=== PATIENT | male | born 1940 | race Asian ===

== ENCOUNTER 2021-11-06 11:39 | Inpatient (IN) | payer BC, MEDICARE ==
[~2021-11-06] VITALS: Ht 162.6 cm; Wt 62.1 kg
--- NOTE | 2021-11-06 11:40 | NUR ---
NADIR 78 FROM HOME FOR SYNCOPAL EPISODE. NO FALL. PT IS A&OX4, ATTACHED TO MONITOR, VITALS ARE WITHIN NORMAL LIMITS. NO RESP DISTRESS NOTED. BLOOD SUGAR 105. IV GROUP COUNSELOR L FA 18G. WARM BLANKET PROVIDED FOR COMFORT. AWAITING MD COOPER.
--- NOTE | 2021-11-06 11:51 | NUR ---
LAB AT BEDSIDE
[2021-11-06 12:00] LABS: BASOPHILS # (AUTO) 0.1 K/uL (0.0-0.2); BASOPHILS % (AUTO) 1.5 % (0.0-2.0); HEMATOCRIT 32 % (39-51); HEMOGLOBIN 10.6 g/dL (13.5-17.5); LYMPHOCYTES # (AUTO) 1.5 K/uL (0.8-4.8); LYMPHOCYTES % (AUTO) 26.1 % (20.0-44.0); MEAN CORPUSCULAR HGB CONC 33 g/dl (31.0-36.0); MEAN CORPUSCULAR VOLUME 94 fL (80-96); MONOCYTES # (AUTO) 0.5 K/uL (0.1-1.30); MONOCYTES % (AUTO) 8.9 % (2.0-12.0); NEUTROPHILS # (AUTO) 3.4 K/uL (1.8-8.9); NEUTROPHILS % (AUTO) 57.5 % (43.0-81.0); PLATELET COUNT (AUTO) 298 K/uL (150-450); RED BLOOD CELL COUNT(AUTO) 3.42 MIL/uL (4.5-6.0); WHITE BLOOD COUNT (AUTO) 5.9 K/uL (4.3-11.0)
[2021-11-06] MEDS ORDERED: IV NS 0.9% 1,000 ML BAG IV ONE (12:00)
[2021-11-06 12:14] LABS: ALANINE AMINOTRANSFERASE 22 U/L (12-78); ALBUMIN 3.8 g/dL (3.4-5.0); ALKALINE PHOSPHATASE 51 U/L (46-116); ASPARTATE AMINOTRANSFERASE 22 U/L (15-37); BILIRUBIN,DIRECT 0.1 mg/dL (0.0-0.2); BILIRUBIN,TOTAL 0.5 mg/dL (0.2-1.0); CALCIUM, SERUM 8.9 mg/dL (8.5-10.1); CARBON DIOXIDE 28 mmol/L (21-32); CHLORIDE 107 mmol/L (98-107); CREATININE 1.9 mg/dL (0.6-1.3); GLUCOSE 120 mg/dL (74-106); POTASSIUM 4.8 mmol/L (3.5-5.1); SODIUM SERUM 140 mmol/L (136-145); TOTAL PROTEIN, SERUM 7.2 g/dL (6.4-8.2); UREA NITROGEN, BLOOD 25 mg/dL (7-18)
[2021-11-06] MEDS ORDERED: CHOL100043 PO (12:20)
[2021-11-06] MEDS ORDERED: FISH1CAP16 PO (12:20)
[2021-11-06] MEDS ORDERED: ISOS30TA9 PO (12:20)
[2021-11-06] MEDS ORDERED: FENO54TA PO (12:20)
[2021-11-06] MEDS ORDERED: CARV3.12 PO (12:20)
[2021-11-06] MEDS ORDERED: LOSA25TA27 PO (12:20)
[2021-11-06] MEDS ORDERED: FAMO20TA8 PO (12:20)
[2021-11-06] MEDS ORDERED: ASPI-1169 PO (12:20)
[2021-11-06] MEDS ORDERED: SIMV40TA2 PO (12:20)
[2021-11-06] MEDS ORDERED: OLME40TA12 PO (12:20)
[2021-11-06] MEDS ORDERED: ONDANSETRON HCL/PF 4 MG/2 ML VIAL IVP PRN (15:00)
[2021-11-06] MEDS ORDERED: HYDROCODONE/APAP 5/325MG TABLET PO PRN (15:00)
[2021-11-06] MEDS ORDERED: ACETAMINOPHEN 325 MG TABLET PO PRN (15:00)
[2021-11-06] MEDS ORDERED: MAG HYDROX/AL HYDROX/SIMETH 30 ML UDC PO PRN (15:00)
--- NOTE | 2021-11-06 15:29 | NUR ---
bed given 327-1
--- NOTE | 2021-11-06 15:40 | NUR ---
REPORT GIVEN FOR CHIKIS
--- NOTE | 2021-11-06 15:59 | NUR ---
PT TRASNPORT TO 3W TELE UNIT WITH ACLS PROTOCOL IN PLACE. PT IS STABLE AND ABLE TO AMBULATE TO HIS BED.
[2021-11-06 16:10] VITALS: BP 140/63
[2021-11-06] MEDS ORDERED: Z GUARD REMEDY 4 OZ OINT TP PRN (17:00)
[2021-11-06] MEDS: IV NS 0.9% 1,000 ML IV PRN (17:43)
--- NOTE | 2021-11-06 17:48 | NUR ---
FLIGHT FOLLOWERGLOVE MACHINE OPERATOR NOTES PT ADMITTED TO UNIT VIA GURNEY AT 1600 WITH DX OF SYNCOPE. PT IS ALERT AND ORIENTED X4. ABLE TO MAKE NEEDS KNOWN, DENIES PAIN OR ANY DISCOMFORTS AT THIS TIME. PT ORIENTED TO STAFF AND ROOM. ON ROOM AIR, TOLERATING WELL, BREATHING EVEN AND UNLABORED, NO SOB NOTED. V/S TAKEN STABLE AND RECORDED. PHOTOS OF SKIN ISSUES TAKEN AND FILED ON HIS CHART. LUNGS CLEAR ON AUSCULTATION, ABDOMEN SOFT, NON-TENDER AND NON-DISTENDED WITH + BOWEL SOUNDS ON FOUR QUADRANTS. PT WITH IV ACCESS ON LFA G#18 INTACT AND STARTED ON IVF OF NS @ 75 ML/HR INFUSING WELL, NO S/S OF INFILTRATION AT SITE NOTED. PT PLACED ON EXTERNAL PRECISION DANCER WITH CURRENT READING OF SB, HR 56, NO C/O CARDIAC DISTRESS VOICED AT THIS TIME. SAFETY MEASURES IMPLEMENTED: CALL LIGHT AND TRAY TABLE WITHIN EASY REACH OF PT, SIDE RAILS UP X2, BED IN LOWEST LOCKED POSITION. WILL CONTINUE TO MONITOR PT ACCORDINGLY.
[2021-11-06] MEDS: CARVEDILOL 3.125 MG TABLET PO SCH (17:49)
--- NOTE | 2021-11-06 18:55 | NUR ---
MATHEMATICS PROFESSORHOST HOSTESS NOTES PT IN BED AWAKE AND WATCHING TV AT THIS TIME. A/O X4. ABLE TO MAKE NEEDS KNOWN. ON ROOM AIR, BREATHING EVEN AND UNLABORED, NO SOB NOTED. TELE-MONITOR SHOWS SB, HR 58 AT THIS TIME, NO C/O CARDIAC DISTRESS VOICED. IV ACCESS ON LFA G#18 INTACT WITH IVF OF NS @ 75 ML/HR INFUSING WELL, NO S/S OF INFILTRATION AT SITE NOTED. ALL NEEDS AND CARE ATTENDED WELL. SAFETY MEASURES MAINTAINED: CALL LIGHT AND TRAY TABLE WITHIN EASY REACH OF PT, SIDE RAILS UP X2, BED IN LOWEST LOCKED POSITION. WILL ENDORSE CHIKIS TO TIRE RETREADER NURSE.
--- NOTE | 2021-11-06 19:51 | NUR ---
LICENSED NUCLEAR OPERATOR OPENING NOTE PT IN BED AWAKE AND WATCHING TV AT THIS TIME. A/O X4. ABLE TO MAKE NEEDS KNOWN. ON ROOM AIR, BREATHING EVEN AND UNLABORED, NO SOB NOTED. TELE-MONITOR SHOWS SB, HR 58 AT THIS TIME, NO C/O CARDIAC DISTRESS VOICED. IV ACCESS ON LFA G#18 INTACT WITH IVF OF NS @ 75 ML/HR INFUSING WELL, NO S/S OF INFILTRATION AT SITE NOTED. ALL NEEDS AND CARE ATTENDED WELL. SAFETY MEASURES MAINTAINED: CALL LIGHT AND TRAY TABLE WITHIN EASY REACH OF PT, SIDE RAILS UP X2, BED IN LOWEST LOCKED POSITION. WILL CONTINUE TO MONITOR.
[2021-11-06 20:00] VITALS: BP_SYST 130; BP_SYST 136; BP_SYST 141; BP_DIAS 59; BP_DIAS 60
[2021-11-06] MEDS ORDERED: MAGNESIUM HYDROXIDE 30 ML UDC PO PRN (22:00)
[2021-11-07] VITALS: BP 128/65
[2021-11-07 07:09] LABS: BASOPHILS # (AUTO) 0.1 K/uL (0.0-0.2); HEMATOCRIT 30 % (39-51); HEMOGLOBIN 10.3 g/dL (13.5-17.5); LYMPHOCYTES # (AUTO) 1.8 K/uL (0.8-4.8); LYMPHOCYTES % (AUTO) 23.6 % (20.0-44.0); MEAN CORPUSCULAR HGB CONC 34 g/dl (31.0-36.0); MEAN CORPUSCULAR VOLUME 93 fL (80-96); MONOCYTES # (AUTO) 0.6 K/uL (0.1-1.30); MONOCYTES % (AUTO) 8.6 % (2.0-12.0); NEUTROPHILS # (AUTO) 4.7 K/uL (1.8-8.9); NEUTROPHILS % (AUTO) 62.8 % (43.0-81.0); PLATELET COUNT (AUTO) 297 K/uL (150-450); RED BLOOD CELL COUNT(AUTO) 3.26 MIL/uL (4.5-6.0); WHITE BLOOD COUNT (AUTO) 7.4 K/uL (4.3-11.0)
[2021-11-07 07:17] LABS: CALCIUM, SERUM 8.6 mg/dL (8.5-10.1); CARBON DIOXIDE 26 mmol/L (21-32); CHLORIDE 110 mmol/L (98-107); CREATININE 1.4 mg/dL (0.6-1.3); GLUCOSE 88 mg/dL (74-106); MAGNESIUM 1.8 mg/dL (1.8-2.4); PHOSPHORUS 2.8 mg/dL (2.5-4.9); POTASSIUM 4.1 mmol/L (3.5-5.1); SODIUM SERUM 143 mmol/L (136-145); UREA NITROGEN, BLOOD 19 mg/dL (7-18)
[2021-11-07] MEDS ORDERED: PANTOPRAZOLE 40 MG TABLET.DR PO SCH (07:30)
[2021-11-07 08:00] VITALS: BP 132/69
--- NOTE | 2021-11-07 08:10 | NUR ---
RN OPENING NOTE PATIENT AWAKE IN BED RESTING, A/O X 4. NO S/S OF PAIN NOTED AT THIS TIME. ON ROOM AIR, NO DISTRESS OR SHORTNESS OF BREATH NOTED. IV ACCESS, LFA #18G, INTACT PATENT AND FLUSHING WELL. PATIENT ON EXTERNAL SEMICONDUCTOR PROCESSING GROUP LEADER WITH CURRENT READING OF SB AND HR OF 58, NO CARDIAC DISTRESS NOTED. FALL AND SAFETY MEASURES IN PLACE, BED ALARM ON, BED IN LOW AND LOCK POSITION, CALL LIGHT AND TABLE WITHIN EASY REACH, SIDE RAILS UP X2. WILL CONTINUE TO MONITOR.
[2021-11-07] MEDS ORDERED: ISOSORBIDE DINITRATE (10MG) 10 MG TABLET PO SCH (09:00)
[2021-11-07] MEDS ORDERED: FAMOTIDINE (20 MG) 20 MG TABLET PO SCH (09:00)
[2021-11-07] MEDS ORDERED: SIMVASTATIN 20 MG TABLET PO SCH (09:00)
[2021-11-07] MEDS ORDERED: ASPIRIN 81 MG TAB.CHEW PO SCH (09:00)
[2021-11-07] MEDS ORDERED: Fenofibrate 48 MG TABLET PO SCH (09:00)
[2021-11-07] MEDS ORDERED: LOSARTAN POTASSIUM 25 MG TABLET PO SCH (09:00)
[2021-11-07] MEDS: CARVEDILOL 3.125 MG TABLET PO SCH (09:29)
[2021-11-07] MEDS: IV NS 0.9% 1,000 ML IV PRN (11:22)
[2021-11-07 12:00] VITALS: BP 122/57
--- NOTE | 2021-11-07 15:00 | NUR ---
MATHEMATICAL STATISTICIAN NOTE PATIENT DISCHARGE IN STABLE CONDITION. A/O X4. V/S TAKEN, STABLE AND RECORDED. NO IV ACCESS. SKIN ASSESSMENT DONE, DISCOLORATION ON BILATERAL LOWER EXTREMITIES, NO OPEN WOUNDS. NAME ARM BAND REMOVED. ALL BELONGINGS CHECKED AND SIGNED. HEALTH TEACHING AND DISCHARGE INSTRUCTIONS GIVEN AND VERBALIZED UNDERSTANDING. PATIENT LEFT UNIT AMBULATING, WITH NO SIGNS OF DISTRESS, ACCOMPANIED BY PROJECT FACILITATOR TO THE LOBBY. CHARGE NURSE AWARE OF DISCHARGED.
== END 2021-11-07 17:01 | disposition home or self-care (01) | DRG 640 ==
LOC: ER 11:43 → TELE 15:43
DX: E86.0 Dehydration (principal); N17.0 Acute kidney failure with tubular necrosis; Z20.822 Contact with and (suspected) exposure to COVID-19; I25.10 Atherosclerotic heart disease of native coronary artery without angina pectoris; I25.2 Old myocardial infarction; I50.9 Heart failure, unspecified; Z98.61 Coronary angioplasty status; Z79.82 Long term (current) use of aspirin; Z79.899 Other long term (current) drug therapy; I12.9 Hypertensive chronic kidney disease with stage 1 through stage 4 chronic kidney disease, or unspecified chronic kidney disease; N18.9 Chronic kidney disease, unspecified; Z95.1 Presence of aortocoronary bypass graft; D64.9 Anemia, unspecified; R73.9 Hyperglycemia, unspecified; E78.5 Hyperlipidemia, unspecified; I10 Essential (primary) hypertension
CPT/HCPCS: 36415; 71045-TC; 80048-TC; 80076-TC; 82962-TC; 83735-TC; 84100-TC; 84484-TC; 85025-TC; 87081-TC; 97116-TC; 97530-TC; C9803; G0378; J7030